=== PATIENT | female | born 1970 | race Caucasian/White ===

== ENCOUNTER → 2020-08-31 | Outpatient (CLI) | payer OTHER ==
--- NOTE | 2020-08-31 16:19 | RAD ---
3 views right foot 08/31/2020 11:35 AM Indication: Reason: RIGHT FOOT PAIN. / Spl. Instructions: / History: Comparison: None Findings: There is no acute fracture or dislocation. There is a hallux valgus deformity. Associated d egenerative change at the first MTP joint is seen with subchondral sclerosis involving the proximal p halanx and mild joint space narrowing. No acute soft tissue changes are seen. Impression: 1. No evidence of acute osseous abnormality 2. Hallux valgus deformity with associated mild degenerative change Electronically signed by: Richardson Marin MD (08/31/2020 4:03 PM) [id number]
== END ==
LOC: DXRAD 11:23
PROVIDERS: ATTEND Family Medicine
DX: M19.071 Primary osteoarthritis, right ankle and foot (principal); M20.11 Hallux valgus (acquired), right foot
CPT/HCPCS: 73630

== ENCOUNTER → 2020-10-07 | Outpatient (CLI) | payer OTHER | LOC: LAB 16:44 | DX: Z02.83 Encounter for blood-alcohol and blood-drug test (principal) | CPT/HCPCS: 36415 ==